=== PATIENT | female | born 1990 | race Caucasian/White ===

== ENCOUNTER 2017-01-08 05:08 | Day surgery (SDC) | payer OTHER ==
[2016-12-25 10:58] VITALS: BMI 47.0
[~2017-01-08] VITALS: Ht 162.6 cm; Wt 124.5 kg
[~2017-01-08 05:08] MED LIST: ACET-1311 PO; BCPILLS PO
[2017-01-08 05:25] VITALS: BP 102/48; PULSE 82; TEMP 36.8; O2SAT 98; Ht 162.6 cm; Wt 124.5 kg
[2017-01-08] MEDS ORDERED: LACTATED RINGER'S 1000ML 1,000 ML IV SCH (06:00)
[2017-01-08] MEDS ORDERED: MIDAZOLAM HCL 1 MG/ML 2ML VIAL ONE (06:41)
[2017-01-08] MEDS ORDERED: FENTANYL CITRATE INJ 50 MCG/1 ML 2 ML VIAL ONE (06:41)
[2017-01-08] MEDS ORDERED: OXYMETAZOLINE HCL 0.05% NA SPR 15 ML BTL ONE (07:08)
[2017-01-08] MEDS ORDERED: GELATIN SPONGE 12-7MM ONE (07:08)
[2017-01-08] MEDS ORDERED: LIDOCAINE/EPINEPHRINE 1% 20 ML VIAL ONE (07:08)
[2017-01-08] MEDS ORDERED: OFLOXACIN 0.3% OP SOLN 5 ML BTL ONE (07:09)
[2017-01-08] MEDS ORDERED: CIPRO 0.3%/DEXAMETHASONE 0.1% OTIC SUSP 7.5ML ONE (07:09)
[2017-01-08] MEDS ORDERED: EpINEphrine INJ 1MG/ML AMP 1 MG/ML AMP ONE (07:09)
--- NOTE | 2017-01-08 07:26 | History and Physical ---
History & Physical Date Jan 08, 2017. Chief Complaint adenoidal hypertrophy, acute serous otitis media of the left ear, and perforation of the right tympanic membrane. History of Present Illness The patient is a 26 year old female with complaints of adenoidal hypertrophy, acute serous otitis media of the left ear, and perforation of the right tympanic membrane. She has been performing saline irrigations, using a nasal steroid spray, and taking an antihistamine and guaifenesin as directed. She has had some improvement in her hearing but still feels as if she has muffled hearing. She denied drainage from her ear. Past Medical/Surgical History Medical Problems: (1) Intrauterine (2) Vaginal delivery appendectomy laparoscopy and cholecystectomy Additional History Hepatic Disease: No Endocrine Disorder: No Kidney Disease: No Hypertension: No Heart Disease: No Bleeding Tendencies: No Infectious Diseases: No Allergies Coded Allergies: NO KNOWN DRUG ALLERGIES (Unverified Allergy, Unknown, NONE, 01/08/17) [place] (Unverified Allergy, Unknown, RASH, 01/08/17) Home Medications Scheduled Acetaminophen (Tylenol), 650 MG PO PRN Control Pills ( Control Pills), 1 TAB PO QAM Physical Examination Skin: warm/dry Respiratory/Chest: normal breath sounds, no respiratory distress Cardiovascular: regular rate, rhythm, no murmur Diagnosis adenoidal hypertrophy, acute serous otitis media of the left ear, and perforation of the right tympanic membrane ASA Classification: ASA Class I Plan of Treatment surgical adenoidectomy and bilateral myringotomy and pressure equalization tube placement at [facility] on 01/08/[address] Tony Brito.
[2017-01-08] MEDS ORDERED: PROPOFOL IV EMULSION 10 MG/ML 20 ML VIAL IV ONE (07:56)
[2017-01-08] MEDS ORDERED: ONDANSETRON INJ 2 MG/ML 2 ML VIAL ONE (07:56)
[2017-01-08] MEDS ORDERED: SUCCINYLCHOLINE CHLORIDE 20 MG/ML 10 ML VIAL IV ONE (07:56)
[2017-01-08] MEDS ORDERED: LIDOCAINE HCL 2% 2 ML VIAL (20MG/ML) ONE (07:56)
[2017-01-08] MEDS ORDERED: DEXAMETHASONE SOD INJ 4 MG/ML VIAL ONE (07:56)
--- NOTE | 2017-01-08 08:05 | Discharge Instructions ---
Discharge Instructions Date of Service Jan 08, 2017. Admission Reason for Admission: Bilateral Acute Serous Otitis Media, Adenoidal Hyp Discharge Discharge Diagnosis / Problem: adenoidal hypertrophy, bilateral acute serous otitis media Discharge Goals Goal(s): Therapeutic intervention Activity Recommendations Activity Limitations: as noted below Lifting Limitations: no more than 5 pounds Exercise/Sports Limitations: as tolerated (no strenuous activity for 3 weeks) Shower/Bathe: no limitations Driving or Machine Use: Do not drive while taking narcotics. . Current Hospital Diet Patient's current hospital diet: Discharge Diet Recommended Diet: Regular Diet (soft foods and advance as tolerated. ) Procedures Procedures Performed: adenoidectomy with bilateral myringotomy with pressure equalization tube placement. Pending Studies Studies pending at discharge: no Medical Emergencies . Who to Call and When: Medical Emergencies: If at any time you feel your situation is an emergency, please call 911 immediately. . Non-Emergent Contact Non-Emergency issues call your: Primary Care Provider Call Non-Emergent contact if: your pain is not controlled, you have any medication questions Call the office immediately during regular office hours or go to the ER immediately if you notice any bleeding. . . "Provider Documentation" section prepared by Prabha Horn. VTE Core Measure Inpt VTE Proph given/why not?: SCD's
[2017-01-08] MEDS ORDERED: LARYING-O-JET KIT (LTA) EXT ONE ×2 (08:08)
[2017-01-08] MEDS ORDERED: ONDANSETRON INJ 2 MG/ML 2 ML VIAL IV PRN ×2 (08:15→08:45)
[2017-01-08] MEDS ORDERED: ACETAMINOPHEN/CODEINE 120/12MG 5ML UDP PO PRN (08:15)
--- NOTE | 2017-01-08 08:33 | [facility] Post Operative Brief Note ---
Immediate Operative Summary Operative Date Jan 08, 2017. Pre-Operative Diagnosis Adenoidal hypertrophy, acute serous otitis media of left ear Post-Operative Diagnosis Adenoidal hypertrophy, acute serous otitis media of left ear Procedure(s) Performed Adenoidectomy; Left Myringotomy with tube placement Surgeon Dr. Tony Brito Bar Assistant Surgeon(s) None Estimated Blood Loss 15 ml Findings 1) Right central tympanic membrane perforation with normal middle ear mucosa. 2) Left thickened tympanic membrane with serous fluid in the middle ear space and thickened middle ear mucosa. 3) Minimally enlarged adenoid tissue. Specimens A: Adenoid Complication(s) None Disposition Recovery Room / PACU
[2017-01-08] MEDS ORDERED: HYDROmorphone INJ 2 MG/ML SYR/VIAL ONE (08:42)
[2017-01-08] MEDS ORDERED: ATROPINE SULFATE 0.1 MG/ML 5ML SYR IV PRN (08:45)
[2017-01-08] MEDS ORDERED: EpHEDrine SULFATE INJ 50 MG/ML AMP IV PRN (08:45)
[2017-01-08] MEDS ORDERED: HYDROmorphone INJ 2 MG/ML SYR/VIAL IV PRN (08:45)
[2017-01-08] MEDS ORDERED: PHENYLEPHRINE 100MCG/ML 5ML SYR IV PRN (08:45)
[2017-01-08] MEDS ORDERED: HYDROmorphone INJ 1 MG/ML SYR ONE (09:02)
--- NOTE | 2017-01-08 09:12 | OPERATIVE REPORT ---
DATE OF OPERATION: 01/08/2017 PREOPERATIVE DIAGNOSIS: 1. Chronic serous otitis media bilaterally. 2. Adenoidal hypertrophy. POSTOPERATIVE DIAGNOSIS: 1. Perforation right tympanic membrane. 2. Chronic serous otitis media, left ear. 3. Adenoidal hypertrophy. PROCEDURE: 1. Adenoidectomy. 2. Left myringotomy with tube placement. SURGEON: Tony Brito M.D. ANESTHESIA: General via endotracheal tube. ESTIMATED BLOOD LOSS: 15 mL. INDICATIONS FOR THE PROCEDURE: This is a 26-year-old woman who has had 2 prior adenoidectomies. Nasopharyngoscopy had been done in my office and showed some adenoidal regrowth. In addition, she once again developed serous otitis media. For this reason, she was taken to the operating room for myringotomy with tube placement along with revision adenoidectomy. SUMMARY OF FINDINGS: 1. The right tympanic membrane had a perforation where previous tube had been. The middle ear mucosa was within normal limits. No surgery was done on the right ear. 2. Left tympanic membrane was thickened with serous fluid in the middle ear space. 3. Adenoids were minimally overgrown and only minimal adenoid tissue was removed. SPECIMENS SENT: Adenoidal tissue. Sponge and needle count was correct at the end the case. COMPLICATIONS: None. DESCRIPTION OF PROCEDURE: The patient had an uneventful endotracheal intubation and the operating microscope was introduced along with a metal speculum for each ear. Gaines curette was used to remove wax from both external auditory canals. When visualizing the right TM it was clear that there was a tympanic membrane perforation with normal middle ear mucosa in the right ear. Therefore, no surgery was done on the right ear. The left ear radial incision was made in the anterior inferior quadrant. A fluoroplastic collar button style tube was introduced after removing fluid. The ofloxacin drops were pumped into the middle ear space. A piece of cotton was placed in the external auditory canal meatus. The table was turned 90 degrees away from the anesthesiologist and head was lowered in the Amanda position. The Ruchi-Alex mouth gag was held in good place using towels. Afrin was placed in the nostrils and the nasopharynx was palpated with my index finger. Excessive adenoidal tissue was removed with a #4 adenoid curette. There was copious irrigation of the nasopharynx to flush out adenoidal tissue. Some tissue was sent for specimen. The resting was sucked into the [place]. The nasopharynx was packed with 2 tonsil sponges soaked in 0.05% oxymetazoline. These were left in place for about 5 minutes. I relaxed the Ruchi-Alex mouth gag while waiting the 5 minutes and then I reopened it. Sponges were removed and there was once again copious irrigation of the nasopharynx. Using a Gloria retractor I elevated the palate and performed cautery in the midline only. There was no further bleeding. The Ruchi-Alex mouth gag was removed as the head was returned to the neutral position. The patient was allowed to wake upon her own and transported to recovery following an uneventful extubation. I attest to the content of the Intraoperative Record and any orders documented therein. Any exceptions are noted below. KUSUM
[2017-01-08] MEDS ORDERED: CEFAZOLIN SOD 1 GM VIAL ONE (09:21)
[2017-01-08] MEDS ORDERED: DiphenhydrAMINE HCL 50 MG/ML VIAL ONE (09:26)
[2017-01-08 09:51] VITALS: BP 134/71; PULSE 87; TEMP 37; O2SAT 95
[2017-01-08 10:10] VITALS: BP 129/63; PULSE 81; O2SAT 96
[2017-01-08 10:40] VITALS: BP 132/71; PULSE 80; TEMP 37; O2SAT 97
--- NOTE | 2017-01-08 11:17 | Anesthesiology Progress Note ---
Anesthesia Post Op Note Date & Time Jan 08, 2017 at 11:16 Vital Signs Pain Intensity: 6.0 Vital Signs Past 12 Hours Date Time Temp Pulse Resp B/P Pulse Ox O2 Delivery O2 Flow Rate FiO2 01/08/17 10:10 81 16 129/63 96 Room Air 01/08/17 09:51 37 87 16 134/71 95 Nasal Cannula 2 01/08/17 09:05 37.0 75 16 116/74 93 Room Air 01/08/17 09:03 37.0 74 14 116/74 94 Room Air 01/08/17 08:55 78 14 125/78 94 01/08/17 08:45 79 13 121/92 97 01/08/17 08:35 84 18 92/73 100 Mask 10 01/08/17 08:27 36.2 82 16 120/54 100 Mask 10 01/08/17 05:25 36.8 82 18 102/48 98 Room Air Notes Mental Status: alert / awake / arousable, participated in evaluation Pt Amnestic to Procedure: Yes Nausea / Vomiting: adequately controlled Pain: adequately controlled Airway Patency, RR, SpO2: stable & adequate BP & HR: stable & adequate Hydration State: stable & adequate Anesthetic Complications: no major complications apparent
== END 2017-01-08 11:20 | disposition home or self-care (01) ==
LOC: C.ACU 05:08
PROVIDERS: ATTEND Otolaryngology
DX: H65.23 Chronic serous otitis media, bilateral (principal); J35.2 Hypertrophy of adenoids; H72.91 Unspecified perforation of tympanic membrane, right ear; Z91.018 Allergy to other foods; Z90.89 Acquired absence of other organs; Z90.49 Acquired absence of other specified parts of digestive tract; Z98.890 Other specified postprocedural states; Z79.3 Long term (current) use of hormonal contraceptives; E66.01 Morbid (severe) obesity due to excess calories; Z68.42 Body mass index [BMI] 45.0-49.9, adult

== ENCOUNTER 2024-03-26 08:14 | Inpatient (IN) ==
[2024-03-26] MEDS: MoRPHine SULFATE 4 MG/ML 1 ML CARP\\VIAL IV STA (08:41)
[2024-03-26] MEDS: ONDANSETRON INJ 2 MG/ML 2 ML VIAL IV STA ×2 (08:41→11:10)
[2024-03-26] MEDS: SODIUM CHLORIDE 0.9% 1,000 ML IV STA (08:42)
[2024-03-26 08:50] LABS: Basophils # (auto) 0.07 K/uL (0.00-0.20); Basophils % (auto) 0.8 %; Eosinophils # (auto) 0.19 K/uL (0.00-0.50); Eosinophils % (auto) 2.1 %; Hematocrit (blood only) 36.7 % (37.0-47.0); Hemoglobin 12.7 g/dl (12.0-16.0); Immature Granulocytes # (auto) 0.02 K/uL (0.01-0.20); Immature Granulocytes % (auto) 0.2 %; Lymphocytes % (auto) 19.2 %; Mean Corpuscular Hemoglobin 31.3 pg (25.0-34.0); Mean Corpuscular Hgb Conc 34.6 g/dL (32.0-36.0); Mean Corpuscular Volume 90.4 fL (80.0-100.0); Mean Platelet Volume 10.6 fL (9.4-12.4); Monocytes # (auto) 0.46 K/uL (0.11-0.59); Monocytes % (auto) 5.2 %; Neutrophils # (auto) 6.43 K/uL (1.40-6.50); Neutrophils % (auto) 72.5 %; Platelet Count 317 K/uL (130-400); RDW Coefficient of Variation 12.2 % (11.5-14.5); Red Blood Count 4.06 M/uL (4.20-5.40); White Blood Count 8.87 K/ul (4.8-10.8)
--- NOTE | 2024-03-26 08:56 | Emergency Department Note ---
ED Provider Note History of Present Illness Chief Complaint: Abdominal Pain Stated Complaint: ABD PAINS Time Seen by Provider: 03/26/24 08:20 34-year-old female presents to the emergency department with complaints of abdominal pain that started at approximately 630 this morning. Patient reports that she woke with significant pain in her lower abdomen. Patient describes pain as a sharp pain through her lower abdomen denies radiation of pain. Patient notes significant nausea but denies any episodes of emesis. Patient notes that she is more pale in color than her baseline. Notes waking with clammy skin and feeling hot and cold spells. Patient has a history of gastric bypass in 2018 and notes recently starting Zoloft and has had diarrhea since starting that medication. Home Medications Medication Instructions Recorded Confirmed Type ascorbic acid (vitamin C) 500 mg 500 mg PO BID 07/30/22 03/26/24 History tablet biotin 5,000 mcg sublingual tablet 5,000 mcg sublingual BID 07/30/22 03/26/24 History calcium citrate 200 mg 2 tab PO TID 07/30/22 03/26/24 History calcium-vitamin D3 6.25 mcg (250 unit) tablet (Citracal-D3 Petites) cholecalciferol (vitamin D3) 50 50 mcg PO DAILY 07/30/22 03/26/24 History mcg (2,000 unit) capsule (Vitamin D3) cyanocobalamin (vitamin B-12) 1,000 mcg IM Q3M 07/30/22 03/26/24 History 1,000 mcg/mL injection solution norethindrone acetate 5 mg tablet 5 mg PO QAM 07/30/22 03/26/24 History pediatric multivitamin no.7-folic 1 tab PO BID 07/30/22 03/26/24 History acid 100 mcg chewable tablet (Flintstones Tab Chew) semaglutide (weight loss) 1.7 1.7 mg subcut WK 03/26/24 03/26/24 History mg/0.75 mL subcutaneous pen injector (Wegovy) sertraline 50 mg tablet 50 mg PO DAILY 03/26/24 03/26/24 History Allergies Allergy/AdvReac Type Severity Reaction Status Date / Time No Known Drug Allergies Allergy Unknown NONE Unverified 07/30/22 00:43 NSAIDS (Non-Steroidal Allergy Unknown I had Unverified 03/26/24 11:36 Anti-Inflamma gastric bypass surgery strawberry Allergy Unknown RASH Unverified 03/26/24 11:15 Past Med/Surg History Problem List Conductive hearing loss of both ears Prior poor obstetrical history, antepartum (Acute 09/08/13) Medical History No significant past medical history Surgical History History of ear surgery History of gastric bypass History of right oophorectomy Family History Other No significant family history Social History Smoking Status: Never smoker Preferred Language: Belarusian Beliefs That Will Affect Care: Spiritual Feels Safe at Home: Yes Physical Exam Vital Signs Vital Signs - 24 hr 03/26/24 08:20 03/26/24 08:30 03/26/24 08:46 Temperature 36.9 C Temperature Source Temporal Artery Scan Pulse Rate 78 77 Pulse Rate [Apical] 68 Pulse Rate from SpO2 Sensor Respiratory Rate 16 18 Respiratory Effort / Characteristics Non-Labored Respiratory Depth Normal Blood Pressure 136/92 Blood Pressure [Right Arm] 137/74 Blood Pressure Mean 106 Blood Pressure Mean [Right Arm] 95 Pulse Oximetry 100 100 Oxygen Delivery Method Room Air Sepsis Recent Fever Within 48 Hours No Sepsis New/Unexplained Change in Mental Status No Sepsis Action Taken by Nursing No Action Required 03/26/24 08:46 03/26/24 11:03 03/26/24 11:45 Temperature Temperature Source Pulse Rate 64 62 65 Pulse Rate [Apical] Pulse Rate from SpO2 Sensor 62 Respiratory Rate 18 18 19 Respiratory Effort / Characteristics Respiratory Depth Blood Pressure Blood Pressure [Right Arm] Blood Pressure Mean Blood Pressure Mean [Right Arm] Pulse Oximetry 100 100 Oxygen Delivery Method Room Air Sepsis Recent Fever Within 48 Hours Sepsis New/Unexplained Change in Mental Status Sepsis Action Taken by Nursing 03/26/24 12:27 03/26/24 12:30 03/26/24 12:30 Temperature Temperature Source Pulse Rate 60 59 L 59 L Pulse Rate [Apical] Pulse Rate from SpO2 Sensor Respiratory Rate 12 21 Respiratory Effort / Characteristics Respiratory Depth Blood Pressure Blood Pressure [Right Arm] Blood Pressure Mean Blood Pressure Mean [Right Arm] Pulse Oximetry 98 Oxygen Delivery Method Sepsis Recent Fever Within 48 Hours Sepsis New/Unexplained Change in Mental Status Sepsis Action Taken by Nursing 03/26/24 13:15 03/26/24 13:33 03/26/24 14:00 Temperature Temperature Source Pulse Rate 74 64 59 L Pulse Rate [Apical] Pulse Rate from SpO2 Sensor 72 63 59 L Respiratory Rate 16 14 16 Respiratory Effort / Characteristics Respiratory Depth Blood Pressure 145/84 H 143/86 H Blood Pressure [Right Arm] Blood Pressure Mean 104 105 Blood Pressure Mean [Right Arm] Pulse Oximetry 97 94 95 Oxygen Delivery Method Sepsis Recent Fever Within 48 Hours Sepsis New/Unexplained Change in Mental Status Sepsis Action Taken by Nursing VITAL SIGNS - Vital signs and nursing notes were reviewed. GENERAL -34-year-old female appearing in some acute distress. Communicates well with provider and answers questions appropriately. HEAD - NC/AT. EYES - PERRL with EOMI bilaterally. EARS - No deformities of external structures noted on gross examination bilaterally. No pain elicited with palpation of the tragus bilaterally. External auditory canals without discharge or otorrhea. NOSE - Midline and without cyanosis. No epistaxis or purulent drainage noted. MOUTH/OROPHARYNX - Without perioral cyanosis. NECK - Neck with FROM. Supple to palpation. No nuchal rigidity. LUNGS - Chest wall symmetric without accessory muscle use, intercostals retractions, or central cyanosis. Normal vesicular breath sounds CTA B/L. No wheezes, rales, or rhonchi appreciated. CARDIAC - No murmur, rubs, or gallops appreciated. ABDOMEN - Abdominal contour flat without pulsations or visible masses. Negative [place]'s or Phan Donovan's Signs. BS are normoactive all four quadrants. Moderate tenderness to palpation appreciated across lower abdomen. Mild guarding. No rebound Tenderness. No palpable masses, hepatosplenomegaly, or ascites noted. EXTREMITIES - No clubbing or peripheral cyanosis. No pretibial edema present. NEUROLOGIC - Cranial nerves II through XII grossly intact. Sensory intact to light touch throughout. PSYCH - A&Ox3 and cooperates fully with examiner. Pt is very pleasant and interacts well with staff. Course Course 34-year-old female presents to the emergency department with complaints of lower abdominal pain that began at approximately 630 this morning. Patient was evaluated by myself and found to have moderate abdominal tenderness, worse with palpation, and significant nausea without emesis. Vital signs were reviewed and cardiac monitoring was initiated by nursing staff. Lab work was ordered as well as a saline lock, fluids, pain medication, Zofran and an abdominal CT. Serum was ordered as well as a urinalysis. Patient denies being able to void at this time but is aware of the urine sample is to be collected. Patient denies any other needs at this time. Patient reported to nursing staff that she was still having significant pain, initial dose of morphine only reduced the pain a little. An additional dose of morphine was ordered for patient to assist with pain control. Patient is cleared to go to CT scan and will be transported after being medicated. Patient returned from CT, still complaining of significant pain. CT scan was interpreted by the radiologist to have intussusception at the anastomosis site from gastric bypass. Gastric bypass was completed in 2018. General surgery was paged and further pain medication was ordered. 10:40am-General surgery was consulted. Kiana Renteria PA-C was consulted regarding patient, given report of HPI, current vitals, CT results, lab results and patient current status. Kiana also consulted with Dr. Marquez and both agreed that transfer to [facility] was recommended. 10:45am-Patient was reevaluated by myself, reports some pain relief however pain is still 7 out of 10. Patient appears to be uncomfortable. Patient was made aware that general surgery was consulted here and recommended transfer to [facility]. Patient verbalizes understanding and is agreeable. 11:15- Paperwork was completed for transfer. Patient was ordered toradol and zofran for continued pain and nausea. 11:50-patient was ordered a lactic acid which resulted at 2.4. Patient was ordered normal saline for hydration and Mefoxin for antibiotic coverage. 12:45-patient reported to nursing staff that significant pain had returned. Patient was ordered another dose of Dilaudid to assist with pain control. Still awaiting a bed at [facility]. 13:15-checked with personal secretary regarding any update on patient's transfer to [facility]. No updates at this time, no bed has been received 15:00-patient is resting in bed, no update at this time on a bed at [facility]. 16:35-still awaiting placement in [place]. Patient reports pain has increased and is requesting more pain medication at this time. Another dose of Dilaudid was ordered 17:15-[facility] [place] states that patient's room should be available shortly. Patient was ordered at her next dose of Mefoxin to be administered at 6 PM. Patient also ordered as needed medications for pain and nausea. 17:30-patient care was signed out to MANI Siegel, please refer to her documentation for further treatment. Administered Medications Hydromorphone HCl (Hydromorphone Inj 0.5 Mg/0.5 Ml Syr) 0.5 mg IV Q2H PRN PRN Reason: Pain Stop: 04/09/24 17:08 Last Admin: 03/26/24 17:25 Dose: 0.5 mg Documented By: DESTINI Discontinued Medications Hydromorphone HCl (Hydromorphone Inj 0.5 Mg/0.5 Ml Syr) 0.5 mg IV NOW STA Stop: 03/26/24 09:45 Last Admin: 03/26/24 09:51 Dose: 0.5 mg Documented By: TAD Hydromorphone HCl (Hydromorphone Inj 1 Mg/Ml Syringe) 1 mg IV NOW STA Stop: 03/26/24 10:12 Last Admin: 03/26/24 10:38 Dose: 1 mg Documented By: TAD Hydromorphone HCl (Hydromorphone Inj 1 Mg/Ml Syringe) 1 mg IV NOW STA Stop: 03/26/24 12:57 Last Admin: 03/26/24 13:01 Dose: 1 mg Documented By: VANNA Hydromorphone HCl (Hydromorphone Inj 1 Mg/Ml Syringe) 1 mg IV NOW STA Stop: 03/26/24 15:49 Last Admin: 03/26/24 15:56 Dose: 1 mg Documented By: DESTINI Sodium Chloride (Nss) 1,000 mls @ 999 mls/hr IV .Q1H1M STA Stop: 03/26/24 09:35 Last Infusion: 03/26/24 09:48 Dose: Infused Documented By: Admin: 03/26/24 08:42 Dose: 999 mls/hr Documented By: TAD Sodium Chloride (Nss) 1,000 mls @ 250 mls/hr IV .Q4H JHONATAN Stop: 03/26/24 16:14 Last Admin: 03/26/24 13:01 Dose: 250 mls/hr Documented By: VANNA Cefoxitin Sodium 1,000 mg/ (Dextrose) 50 mls @ 100 mls/hr IV NOW STA; Protocol Stop: 03/26/24 12:36 Last Infusion: 03/26/24 14:59 Dose: Infused Documented By: Admin: 03/26/24 13:22 Dose: 100 mls/hr Documented By: VANNA Ioversol (Optiray 320 100ml) 94 ml IV ONCE ONE Stop: 03/26/24 09:27 Last Admin: 03/26/24 09:26 Dose: 94 ml Documented By: MIGUEL ANGEL Ketorolac Tromethamine (Ketorolac Tromethamine 15 Mg/Ml Vial) 15 mg IV NOW STA Stop: 03/26/24 11:01 Last Admin: 03/26/24 11:10 Dose: 15 mg Documented By: VANNA Metoclopramide HCl (Metoclopramide Hcl Inj 5 Mg/Ml 2 Ml Vial) 10 mg IV NOW STA Stop: 03/26/24 16:17 Last Admin: 03/26/24 16:28 Dose: 10 mg Documented By: DESTINI Morphine Sulfate (Morphine Sulfate 4 Mg/Ml 1 Ml Carp\Vial) 4 mg IV NOW STA Stop: 03/26/24 08:36 Last Admin: 03/26/24 08:41 Dose: 4 mg Documented By: TAD Morphine Sulfate (Morphine Sulfate 10 Mg/Ml Carp/Vial) 4 mg IV NOW STA Stop: 03/26/24 09:12 Last Admin: 03/26/24 09:16 Dose: 4 mg Documented By: JOHN Ondansetron HCl (Ondansetron Inj 2 Mg/Ml 2 Ml Vial) 4 mg IV NOW STA Stop: 03/26/24 08:36 Last Admin: 03/26/24 08:41 Dose: 4 mg Documented By: TAD Ondansetron HCl (Ondansetron Inj 2 Mg/Ml 2 Ml Vial) 4 mg IV NOW STA Stop: 03/26/24 11:09 Last Admin: 03/26/24 11:10 Dose: 4 mg Documented By: VANNA Medical Decision Making Differential Diagnosis Gastroenteritis, small bowel obstruction, ectopic , hemorrhagic cyst, urinary tract infection and more. Medical Records Attestation: I reviewed the patient's medical records. Home Medications was personally reviewed by me Laboratory Data 03/26/24 08:34 03/26/24 08:34 Lab Results 03/26/24 03/26/24 03/26/24 Range/Units 08:34 08:36 10:21 WBC 8.87 (4.8-10.8) K/ul RBC 4.06 L (4.20-5.40) M/uL Hgb 12.7 (12.0-16.0) g/dl Hct 36.7 L (37.0-47.0) % MCV 90.4 (80.0-100.0) fL MCH 31.3 (25.0-34.0) pg MCHC 34.6 (32.0-36.0) g/dL RDW Std Deviation 40.0 (36.4-46.3) fL RDW Coeff of Claire 12.2 (11.5-14.5) % Plt Count 317 (130-400) K/uL MPV 10.6 (9.4-12.4) fL Immature Gran % (Auto) 0.2 % Neut % (Auto) 72.5 % Lymph % (Auto) 19.2 % Frontier % (Auto) 5.2 % Eos % (Auto) 2.1 % Baso % (Auto) 0.8 % Neut # (Auto) 6.43 (1.40-6.50) K/uL Lymph # (Auto) 1.70 (1.20-3.40) K/uL Frontier # (Auto) 0.46 (0.11-0.59) K/uL Eos # (Auto) 0.19 (0.00-0.50) K/uL Baso # (Auto) 0.07 (0.00-0.20) K/uL Immature Gran # (Auto) 0.02 (0.01-0.20) K/uL PT 10.7 (9.0-12.0) Seconds INR 1.0 (0.9-1.1) Sodium 139 (136-145) mmol/L Potassium 3.8 (3.5-5.1) mmol/L Chloride 106 (98-107) mmol/L Carbon Dioxide 23 (21-32) mmol/L Anion Gap 10 (3-11) BUN 13 (6-23) mg/dl Creatinine 0.63 (0.6-1.2) mg/dl Est Cr Clr Drug Dosing 115.8 ml/min Est GFR ( Amer) 134.7 ml/min Est GFR (Non-Af Amer) 116.2 ml/min BUN/Creatinine Ratio 20.6 H (10-20) Glucose 112 H (70-99(Fasting)) mg/dl Lactate 2.4 H* (0.4-2.0) mmol/L Calcium 9.6 (8.6-10.3) mg/dl Total Bilirubin 0.5 (0.2-1.0) mg/dl AST 14 (13-39) U/L ALT 9 (7-52) U/L Alkaline Phosphatase 54 (34-104) U/L Total Protein 7.7 (6.0-8.3) gm/dl Albumin 4.4 (3.4-5.0) gm/dl Globulin 3.3 (2.5-4.0) gm/dl Albumin/Globulin Ratio 1.3 (0.9-2) Lipase 8 L (11-82) U/L HCG, Qual Negative (Negative) Blood Type O Positive Antibody Screen NEGATIVE 03/26/24 Range/Units 12:21 WBC (4.8-10.8) K/ul RBC (4.20-5.40) M/uL Hgb (12.0-16.0) g/dl Hct (37.0-47.0) % MCV (80.0-100.0) fL MCH (25.0-34.0) pg MCHC (32.0-36.0) g/dL RDW Std Deviation (36.4-46.3) fL RDW Coeff of Claire (11.5-14.5) % Plt Count (130-400) K/uL MPV (9.4-12.4) fL Immature Gran % (Auto) % Neut % (Auto) % Lymph % (Auto) % Frontier % (Auto) % Eos % (Auto) % Baso % (Auto) % Neut # (Auto) (1.40-6.50) K/uL Lymph # (Auto) (1.20-3.40) K/uL Frontier # (Auto) (0.11-0.59) K/uL Eos # (Auto) (0.00-0.50) K/uL Baso # (Auto) (0.00-0.20) K/uL Immature Gran # (Auto) (0.01-0.20) K/uL PT (9.0-12.0) Seconds INR (0.9-1.1) Sodium (136-145) mmol/L Potassium (3.5-5.1) mmol/L Chloride (98-107) mmol/L Carbon Dioxide (21-32) mmol/L Anion Gap (3-11) BUN (6-23) mg/dl Creatinine (0.6-1.2) mg/dl Est Cr Clr Drug Dosing ml/min Est GFR ( Amer) ml/min Est GFR (Non-Af Amer) ml/min BUN/Creatinine Ratio (10-20) Glucose (70-99(Fasting)) mg/dl Lactate 1.6 (0.4-2.0) mmol/L Calcium (8.6-10.3) mg/dl Total Bilirubin (0.2-1.0) mg/dl AST (13-39) U/L ALT (7-52) U/L Alkaline Phosphatase (34-104) U/L Total Protein (6.0-8.3) gm/dl Albumin (3.4-5.0) gm/dl Globulin (2.5-4.0) gm/dl Albumin/Globulin Ratio (0.9-2) Lipase (11-82) U/L HCG, Qual (Negative) Blood Type Antibody Screen Imaging Data Radiologist's Impression: Abdomen/Pelvis CT 03/26/24 08:36 CT abd pelvis IV con only CLINICAL HISTORY: Abdominal pain, nausea TECHNIQUE: Helical axial images of the abdomen and pelvis were obtained and displayed. Automated dose lowering techniques and/or adjustment according to patient size were utilized for this exam. This exam was performed with intravenous contrast. CT DOSE: 760.56 mGy.cm COMPARISON: None available at the time of this dictation. FINDINGS: Lower chest: No acute abnormality. Liver: Heterogeneous hypodensity of the region of the falciform ligament which may represent focal fatty change versus meningioma or other mass. Gallbladder and biliary tree: Patient is status post cholecystectomy. No intra- or extrahepatic biliary ductal dilation. Pancreas: Unremarkable, no focal lesions. Spleen: Unremarkable. Adrenals: Unremarkable. Kidneys and ureters: Tiny left hypodensities too small to characterize. Bladder: Unremarkable. Reproductive organs: Unremarkable. Bowel: Postsurgical changes of Bhakti-en-Y gastric bypass are seen. There is small bowel intussusception at the site of the distal anastomosis. There is resulting dilation of a few upstream loops of small bowel. The distal bowel is underdistended. Lymph nodes Retroperitoneal: Unremarkable. Pelvic: Unremarkable. Mesenteric: Unremarkable. Peritoneum: Normal. Vessels: Unremarkable. Abdominal wall: Unremarkable. Bones: Unremarkable. IMPRESSION: Dilated loops of small bowel secondary to intussusception at the anastomosis site of the Bhakti-en-Y gastric bypass. Additional findings as above. ACT 112: Negative or not required by law. Electronically signed by: Reid Badillo M.D. 03/26/2024 9:57 AM MDM Narrative 34-year-old female presents to the emergency department with complaints of lower abdominal pain that began at approximately 630 this morning. Patient is pale in color, clammy, and reports significant pain and nausea. Patient is actively retching upon physical exam, denies any vomiting. Patient was ordered lab work and an abdominal CT. A type and screen was ordered in the event that blood products would be indicated. General surgery was consulted regarding findings of intussiception on CT, who recommended that patient be transferred to [facility] where gastric bypass surgery was completed. I spoke with general surgery at [facility] who accepted patient on transfer. Reports that they should have a bed for patient today. Continued pain medication has been ordered to help with significant pain. Discharge Plan Visit Data Chief Complaint: Abdominal Pain Stated Complaint: ABD PAINS ED Provider: Jose R Collins ED Midlevel Provider: Skye Davis Forms Stand Alone Forms: My [facility] Prescriptions Prescriptions: No Action norethindrone acetate 5 mg tablet 5 mg PO QAM cyanocobalamin (vitamin B-12) 1,000 mcg/mL solution 1,000 mcg IM Q3M biotin 5,000 mcg Tablet, Sublingual 5,000 mcg SUBLINGUAL BID ascorbic acid (vitamin C) 500 mg Tablet 500 mg PO BID Flintstones Tab Chew 100 mcg Tablet,Chewable 1 tab PO BID cholecalciferol (vitamin D3) [Vitamin D3] 50 mcg (2,000 unit) Capsule 50 mcg PO DAILY calcium citrate-vitamin D3 [Citracal-D3 Petites] 200 mg-6.25 mcg (250 unit) Tablet 2 tab PO TID sertraline 50 mg tablet 50 mg PO DAILY Wegovy 1.7 mg/0.75 mL pen injector 1.7 mg subcut WK Rx Instructions: Fridays Referrals Referrals: Otilio Suárez PA-C [Primary Care Provider] -
[2024-03-26 09:05] LABS: Pregnancy Test, Serum Negative (Negative)
[2024-03-26 09:11] LABS: Albumin Globulin Ratio 1.3 (0.9-2); Albumin Level 4.4 gm/dl (3.4-5.0); BUN Creatinine Ratio 20.6 (10-20); Bilirubin,Total 0.5 mg/dl (0.2-1.0); Calcium 9.6 mg/dl (8.6-10.3); Creatinine Clr Calc Pharmacy 115.8 ml/min; Est GFR (African American) 134.7 ml/min; Est GFR (Non-African American) 116.2 ml/min; Globulin 3.3 gm/dl (2.5-4.0); Potassium 3.8 mmol/L (3.5-5.1); Total Protein 7.7 gm/dl (6.0-8.3)
[2024-03-26 09:14] LABS: Prothrombin Time 10.7 Seconds (9.0-12.0)
[2024-03-26] MEDS: MoRPHine SULFATE 10 MG/ML CARP/VIAL IV STA (09:16)
[2024-03-26] MEDS: OPTIRAY 320 100ml IV ONE (09:26)
[2024-03-26] MEDS: HYDROmorphone INJ 0.5 MG/0.5 ML SYR IV STA (09:51)
--- NOTE | 2024-03-26 09:58 | CT Scan Report ---
CT abd pelvis IV con only CLINICAL HISTORY: Abdominal pain, nausea TECHNIQUE: Helical axial images of the abdomen and pelvis were obtained and displayed. Automated dose lowering techniques and/or adjustment according to patient size were utilized for this exam. This e xam was performed with intravenous contrast. CT DOSE: 760.56 mGy.cm COMPARISON: None available at the time of this dictation. FINDINGS: Lower chest: No acute abnormality. Liver: Heterogeneous hypodensity of the region of the falciform ligament which may represent focal fa tty change versus meningioma or other mass. Gallbladder and biliary tree: Patient is status post cholecystectomy. No intra- or extrahepatic bilia ry ductal dilation. Pancreas: Unremarkable, no focal lesions. Spleen: Unremarkable. Adrenals: Unremarkable. Kidneys and ureters: Tiny left hypodensities too small to characterize. Bladder: Unremarkable. Reproductive organs: Unremarkable. Bowel: Postsurgical changes of Bhakti-en-Y gastric bypass are seen. There is small bowel intussusceptio n at the site of the distal anastomosis. There is resulting dilation of a few upstream loops of small bowel. The distal bowel is underdistended. Lymph nodes Retroperitoneal: Unremarkable. Pelvic: Unremarkable. Mesenteric: Unremarkable. Peritoneum: Normal. Vessels: Unremarkable. Abdominal wall: Unremarkable. Bones: Unremarkable. IMPRESSION: Dilated loops of small bowel secondary to intussusception at the anastomosis site of the Bhakti-en-Y ga stric bypass. Additional findings as above. ACT 112: Negative or not required by law. Electronically signed by: Reid Badillo M.D. 03/26/2024 9:57 AM
[2024-03-26] MEDS: HYDROmorphone INJ 1 MG/ML SYRINGE IV STA ×3 (10:38→15:56)
[2024-03-26] MEDS: KETOROLAC TROMETHAMINE 15 MG/ML VIAL IV STA (11:10)
[2024-03-26] MEDS: SODIUM CHLORIDE 0.9% 1,000 ML IV SCH (13:01)
[2024-03-26] MEDS: cefOXitin 1,000 MG in DEXTROSE 5 % MINI-B 50 ML IV STA (13:22)
[2024-03-26] MEDS: METOCLOPRAMIDE HCL INJ 5 MG/ML 2 ML VIAL IV STA (16:28)
[2024-03-26] MEDS: HYDROmorphone INJ 0.5 MG/0.5 ML SYR IV PRN (17:25)
[2024-03-26] MEDS: cefOXitin 2,000 MG in DEXTROSE 5 % MINI-B 50 ML IV SCH (18:48)
--- NOTE | 2024-03-26 22:40 | Emergency Department Note ---
ED Visit Note I received sign-out from MANI Gonsalez, at change of shift. The patient is awaiting transfer to [facility] for intussusception of her small bowel at the anastomosis site of her gastric bypass. She has already been accepted for the transfer, but is awaiting a bed assignment. Patient is on as needed IV Dilaudid for pain management and is receiving cefoxitin IV every 6 hours. At 10:35 PM, the patient's nurse called me stating the patient is having increasing abdominal pain, rating 10/10 and is no longer getting relief after r eceiving IV Dilaudid. She requested something additional for pain. She has already received numerous doses of IV Dilaudid and morphine as well as a dose of IV Toradol. 1000 mg IV acetaminophen was ordered as well as a repeat lactate. I examined the patient. Vital signs are stable. She is afebrile. She has tenderness in the epigastric region, but abdomen is soft and no rebound tenderness or guarding. She is not vomiting and her nausea has been under control. She does note that her pain is improving at after starting the IV acetaminophen. Repeat lactate is normal at 0.8 as well. I spoke on phone with Dr. Kovacs, general surgery, regarding the patient's worsening pain and she states that she is not able to address the patient's surgical complaints and agreed with the plan for transfer. Unfortunately, the patient has not been able to obtain a bed or transport to [facility] at this time, and will most likely not have available transport until at least tomorrow morning. I spoke on the phone with Dr. Romero, [facility] hospitalist, who agrees to evaluate the patient for admission pending her transfer to [facility], hopefully tomorrow morning. The patient was also discussed with Dr. Valdez, my ED attending, who agrees with my assessment, plan, and disposition. The chart was completed utilizing [employer] Speech voice recognition software. Grammatical errors, random word insertions, pronoun errors, and incomplete sentences are an occasional consequence of this system due to software limitations, ambient noise, and hardware issues. Any formal questions or concerns about the content, text, or information contained within the body of this dictation should be directly addressed to the nurse practitioner for clarification.
[2024-03-26] MEDS: ACETAMINOPHEN 1,000 MG/100 ML VIAL IV STA (22:42)
--- NOTE | 2024-03-26 23:37 | History & Physical Report ---
Date of Service March 26, 2024 Assessment & Plan (1) SBO (small bowel obstruction): Plan: Intussusception on CT History of gastric bypass No sepsis for now Hyperglycemia rule out DM [facility] transfer once transport available. (Patient already accepted by Dr. Resendez of [facility] General Surgery. Transfer paperwork already completed by ED provider.) IVF, bowel rest, limit narcotics NGT insertion if with worsening abdominal pain/dry heaving/emesis. Check hemoglobin A1c DVT prophylaxis per Lovenox subcu Full code Case discussed with Dr. Resendez. Okay with NGT insertion. No need for antibiotics for now. Recommends repeat CT abdomen pelvis with IV contrast. Text document was generated using [employer] voice recognition software. It may contain grammatical or spelling errors. Kindly contact undersigned for clarification of any documentation item in qu estion. History of Present Illness Chief Complaint: Abdominal pain Primary Care Provider: Otilio Suárez PA-C History obtained from patient and records. Medical history significant for gastric bypass, endometriosis, migraine. Patient woke up this morning with sharp achy central abdominal pain going up. Dry heaving. Bowel movements not as much the last few days. No headache, no chest pain, no SOB. No fever, no chills. Patient consulted ER. CT abdomen pelvis showed dilated loops of small bowel secondary to intussusception at the anastomosis site of the Bhakti-en-Y gastric bypass. Cefoxitin administered at the ER. General surgery recommended [facility] transfer. Patient accepted for transfer by [facility] surgery. Patient currently waiting transport. Medical History as above Surgical History : Gastric bypass, appendectomy, section, hysteroscopy with fallopian implants, tympanoplasty, cholecystectomy, pelvic tumor removal, right oophorectomy, [place] gland excision Family History : DM, heart disease Personal/Social history : Non-smoker, no EtOH intake, hotel laundry employee Allergies Allergy/AdvReac Type Severity Reaction Status Date / Time No Known Drug Allergies Allergy Unknown NONE Unverified 07/30/22 00:43 NSAIDS (Non-Steroidal Allergy Unknown I had Unverified 03/26/24 11:36 Anti-Inflamma gastric bypass surgery strawberry Allergy Unknown RASH Unverified 03/26/24 11:15 Home Medications Medication Instructions Recorded Confirmed Type ascorbic acid (vitamin C) 500 mg 500 mg PO BID 07/30/22 03/26/24 History tablet biotin 5,000 mcg sublingual tablet 5,000 mcg sublingual BID 07/30/22 03/26/24 History calcium citrate 200 mg 2 tab PO TID 07/30/22 03/26/24 History calcium-vitamin D3 6.25 mcg (250 unit) tablet (Citracal-D3 Petites) cholecalciferol (vitamin D3) 50 50 mcg PO DAILY 07/30/22 03/26/24 History mcg (2,000 unit) capsule (Vitamin D3) cyanocobalamin (vitamin B-12) 1,000 mcg IM Q3M 07/30/22 03/26/24 History 1,000 mcg/mL injection solution norethindrone acetate 5 mg tablet 5 mg PO QAM 07/30/22 03/26/24 History pediatric multivitamin no.7-folic 1 tab PO BID 07/30/22 03/26/24 History acid 100 mcg chewable tablet (Flintstones Tab Chew) semaglutide (weight loss) 1.7 1.7 mg subcut WK 03/26/24 03/26/24 History mg/0.75 mL subcutaneous pen injector (Wegovy) sertraline 50 mg tablet 50 mg PO DAILY 03/26/24 03/26/24 History Past Med/Surg History Problem List (Updated 03/27/24 @ 04:32 by Tanmay Romero MD) SBO (small bowel obstruction) Conductive hearing loss of both ears Prior poor obstetrical history, antepartum (Acute 09/08/13) Medical History No significant past medical history Surgical History History of ear surgery History of gastric bypass History of right oophorectomy Family History Other No significant family history Social History Smoking Status: Never smoker Second Hand Exposure: No; Do You Dip or Chew Tobacco: No; Hx Alcohol Use: No Hx Substance Use: Yes Last Used Substance: Days (ago) Last Used Substance Other:: 1 week ago, only does occasionally Preferred Language: Welsh Communication Ability: Effective Service Engine Repairer Required: No Beliefs That Will Affect Care: None Feels Safe at Home: Yes Safety Concerns: Feels Safe At This Time Assistive Devices: None Review of Systems Review of Systems: As per HPI, all other systems reviewed and negative Physical Exam Physical Exam: GENERAL: Anxious, slightly uncomfortable, no respiratory distress SKIN: Normal color, warm HEENT: [place] palpebral conjunctivae, no ptosis, dry buccal mucosa NECK : Supple, no tenderness CHEST : CTA, no tenderness HEART : RRR, no obvious murmurs ABDOMEN: Some distention, minimal central abdominal tenderness EXTREMITIES : No LE swelling/tenderness, no other conspicuous deformities noted NEUROLOGIC : Coherent, no facial asymmetry, no other gross focality Results & Data Results & Data Vital Signs (Past 12 Hours) Vital Signs Pulse Pulse Resp BP BP Pulse Ox O2 Del Method 03/26/24 21:16 77 03/26/24 21:06 65 7 L 96 03/26/24 20:30 74 15 98 03/26/24 20:30 136/80 03/26/24 19:30 132/82 03/26/24 19:30 69 17 100 Room Air 03/26/24 19:06 66 14 98 Room Air 03/26/24 18:51 80 20 100 03/26/24 18:27 66 12 98 03/26/24 17:43 65 22 117/65 97 Room Air 03/26/24 17:42 72 19 98 03/26/24 16:45 75 19 98 03/26/24 16:09 68 97 03/26/24 15:42 68 100 03/26/24 15:03 65 99 03/26/24 14:00 59 L 16 143/86 H 95 03/26/24 13:33 64 14 94 03/26/24 13:15 74 16 145/84 H 97 03/26/24 12:30 59 L 21 03/26/24 12:30 59 L 03/26/24 12:27 60 12 98 03/26/24 11:45 65 19 Laboratory Results Laboratory Results WBC 8.87 K/ul (4.8-10.8) 03/26/24 08:34 RBC 4.06 M/uL (4.20-5.40) L 03/26/24 08:34 Hgb 12.7 g/dl (12.0-16.0) 03/26/24 08:34 Hct 36.7 % (37.0-47.0) L 03/26/24 08:34 MCV 90.4 fL (80.0-100.0) 03/26/24 08:34 MCH 31.3 pg (25.0-34.0) 03/26/24 08:34 MCHC 34.6 g/dL (32.0-36.0) 03/26/24 08:34 RDW Std Deviation 40.0 fL (36.4-46.3) 03/26/24 08:34 RDW Coeff of Claire 12.2 % (11.5-14.5) 03/26/24 08:34 Plt Count 317 K/uL (130-400) 03/26/24 08:34 MPV 10.6 fL (9.4-12.4) 03/26/24 08:34 Immature Gran % (Auto) 0.2 % 03/26/24 08:34 Neut % (Auto) 72.5 % 03/26/24 08:34 Lymph % (Auto) 19.2 % 03/26/24 08:34 [place] % (Auto) 5.2 % 03/26/24 08:34 Eos % (Auto) 2.1 % 03/26/24 08:34 Baso % (Auto) 0.8 % 03/26/24 08:34 Neut # (Auto) 6.43 K/uL (1.40-6.50) 03/26/24 08:34 Lymph # (Auto) 1.70 K/uL (1.20-3.40) 03/26/24 08:34 [place] # (Auto) 0.46 K/uL (0.11-0.59) 03/26/24 08:34 Eos # (Auto) 0.19 K/uL (0.00-0.50) 03/26/24 08:34 Baso # (Auto) 0.07 K/uL (0.00-0.20) 03/26/24 08:34 Immature Gran # (Auto) 0.02 K/uL (0.01-0.20) 03/26/24 08:34 PT 10.7 Seconds (9.0-12.0) 03/26/24 08:34 INR 1.0 (0.9-1.1) 03/26/24 08:34 Sodium 139 mmol/L (136-145) 03/26/24 08:34 Potassium 3.8 mmol/L (3.5-5.1) 03/26/24 08:34 Chloride 106 mmol/L (98-107) 03/26/24 08:34 Carbon Dioxide 23 mmol/L (21-32) 03/26/24 08:34 Anion Gap 10 (3-11) 03/26/24 08:34 BUN 13 mg/dl (6-23) 03/26/24 08:34 Creatinine 0.63 mg/dl (0.6-1.2) 03/26/24 08:34 Est Cr Clr Drug Dosing 115.8 ml/min 03/26/24 08:34 Est GFR ( Amer) 134.7 ml/min 03/26/24 08:34 Est GFR (Non-Af Amer) 116.2 ml/min 03/26/24 08:34 BUN/Creatinine Ratio 20.6 (10-20) H 03/26/24 08:34 Glucose 112 mg/dl (70-99(Fasting)) H 03/26/24 08:34 Lactate 0.8 mmol/L (0.4-2.0) 03/26/24 23:08 Calcium 9.6 mg/dl (8.6-10.3) 03/26/24 08:34 Total Bilirubin 0.5 mg/dl (0.2-1.0) 03/26/24 08:34 AST 14 U/L (13-39) 03/26/24 08:34 ALT 9 U/L (7-52) 03/26/24 08:34 Alkaline Phosphatase 54 U/L (34-104) 03/26/24 08:34 Total Protein 7.7 gm/dl (6.0-8.3) 03/26/24 08:34 Albumin 4.4 gm/dl (3.4-5.0) 03/26/24 08:34 Globulin 3.3 gm/dl (2.5-4.0) 03/26/24 08:34 Albumin/Globulin Ratio 1.3 (0.9-2) 03/26/24 08:34 Lipase 8 U/L (11-82) L 03/26/24 08:34 HCG, Qual Negative (Negative) 03/26/24 08:34 Blood Type O Positive 03/26/24 08:36 Antibody Screen NEGATIVE 03/26/24 08:36 Impressions Abdomen/Pelvis CT 03/26/24 08:36 CT abd pelvis IV con only CLINICAL HISTORY: Abdominal pain, nausea TECHNIQUE: Helical axial images of the abdomen and pelvis were obtained and displayed. Automated dose lowering techniques and/or adjustment according to patient size were utilized for this exam. This exam was performed with intravenous contrast. CT DOSE: 760.56 mGy.cm COMPARISON: None available at the time of this dictation. FINDINGS: Lower chest: No acute abnormality. Liver: Heterogeneous hypodensity of the region of the falciform ligament which may represent focal fatty change versus meningioma or other mass. Gallbladder and biliary tree: Patient is status post cholecystectomy. No intra- or extrahepatic biliary ductal dilation. Pancreas: Unremarkable, no focal lesions. Spleen: Unremarkable. Adrenals: Unremarkable. Kidneys and ureters: Tiny left hypodensities too small to characterize. Bladder: Unremarkable. Reproductive organs: Unremarkable. Bowel: Postsurgical changes of Bhakti-en-Y gastric bypass are seen. There is small bowel intussusception at the site of the distal anastomosis. There is resulting dilation of a few upstream loops of small bowel. The distal bowel is underdistended. Lymph nodes Retroperitoneal: Unremarkable. Pelvic: Unremarkable. Mesenteric: Unremarkable. Peritoneum: Normal. Vessels: Unremarkable. Abdominal wall: Unremarkable. Bones: Unremarkable. IMPRESSION: Dilated loops of small bowel secondary to intussusception at the anastomosis site of the Bhakti-en-Y gastric bypass. Additional findings as above. ACT 112: Negative or not required by law. Electronically signed by: Reid Badillo M.D. 03/26/2024 9:57 AM
[2024-03-26 23:56] LABS: Magnesium 1.7 mg/dl (1.7-2.4)
[2024-03-26] MEDS ORDERED: LORazepam 0.25 MG in SYRINGE 0.125 ML IV PRN (23:57)
[2024-03-27] MEDS ORDERED: PROMETHAZINE HCL 6.25 MG in SODIUM CHLORIDE 0.9% 50 ML IV PRN (01:14)
[2024-03-27] MEDS ORDERED: LIDOCAINE 2% JELLY 5 ML TUBE EXT ONE (01:45)
[2024-03-27] MEDS: ONDANSETRON INJ 2 MG/ML 2 ML VIAL IV PRN (01:50)
[2024-03-27] MEDS: KETOROLAC TROMETHAMINE 15 MG/ML VIAL IV PRN (01:52)
[2024-03-27 02:30] LABS: Appearance Urine Clear (Clear); Bacteria Urine Automated None Seen (None Seen); Bilirubin Urine Negative (Negative); Blood Urine 1+ (Negative); Cast Urine Automated 0-2 /lpf (0-2); Color Urine Yellow; Epithelial Cell Urine Auto 0-2 /hpf (0-2); Glucose Urine UA Negative (Negative); Ketones Urine 4+ (Negative); Leukocyte Esterase Urine Negative (Negative); Nitrite Urine Negative (Negative); Protein Urine Negative (Negative); Specific Gravity Urine 1.024 (1.000-1.030); Urobilinogen Urine Negative (Negative); WBC Urine Automated 0-5 /hpf (0-5)
[2024-03-27] MEDS ORDERED: Nursing to Pharmacy Communication SCH (03:15)
[2024-03-27] MEDS: NSS + 20MEQ KCL 20 MEQ/1,000 ML BAG IV ONE (03:21)
[2024-03-27] MEDS: ACETAMINOPHEN 1,000 MG/100 ML VIAL IV PRN (06:33)
[2024-03-27 06:57] LABS: Estimated Average Glucose 103 mg/dl; Hemoglobin A1C 5.2 % (4.5-5.6)
[2024-03-27] MEDS: ENOXAPARIN INJ 40 MG/0.4 ML SYR SQ SCH (07:35)
[2024-03-27] MEDS: SERTRALINE HCL 50 MG TABLET PO SCH (07:35)
[2024-03-27 07:53] LABS: Basophils # (auto) 0.03 K/uL (0.00-0.20); Basophils % (auto) 0.2 %; Eosinophils # (auto) 0.02 K/uL (0.00-0.50); Eosinophils % (auto) 0.1 %; Hemoglobin 11.5 g/dl (12.0-16.0); Immature Granulocytes # (auto) 0.11 K/uL (0.01-0.20); Immature Granulocytes % (auto) 0.7 %; Lymphocytes # (auto) 1.29 K/uL (1.20-3.40); Lymphocytes % (auto) 7.8 %; Mean Corpuscular Hemoglobin 30.7 pg (25.0-34.0); Mean Corpuscular Hgb Conc 33.8 g/dL (32.0-36.0); Mean Corpuscular Volume 90.7 fL (80.0-100.0); Monocytes # (auto) 1.51 K/uL (0.11-0.59); Monocytes % (auto) 9.1 %; Neutrophils # (auto) 13.57 K/uL (1.40-6.50); Neutrophils % (auto) 82.1 %; Platelet Count 292 K/uL (130-400); RDW Coefficient of Variation 12.1 % (11.5-14.5); RDW Standard Deviation 39.9 fL (36.4-46.3); Red Blood Count 3.75 M/uL (4.20-5.40); White Blood Count 16.53 K/ul (4.8-10.8)
[2024-03-27 08:17] LABS: Calcium 8.6 mg/dl (8.6-10.3); Creatinine Clr Calc Pharmacy 144.8 ml/min; Est GFR (African American) 145.3 ml/min; Est GFR (Non-African American) 125.4 ml/min; Potassium 3.7 mmol/L (3.5-5.1)
[2024-03-27] MEDS: OPTIRAY 320 100ml IV ONE (09:13)
[2024-03-27] MEDS ORDERED: NSS + 20MEQ KCL 20 MEQ/1,000 ML BAG IV SCH (10:00)
[2024-03-27] MEDS: ACETAMINOPHEN 1,000 MG/100 ML VIAL IV SCH (10:16)
--- NOTE | 2024-03-27 10:26 | Discharge Summary ---
Discharge Summary Date of Service March 27, 2024 Principal Dx & Hospital Course #1 = Principal Diagnosis (1) SBO (small bowel obstruction): Plan SBO (small bowel obstruction) Intussusception on CT History of gastric bypass No sepsis for now Pt in lots of pain [facility] transfer once transport available. (Patient already accepted by Dr. Resendez of [facility] General Surgery. Transfer paperwork already completed by ED provider.) IVF, bowel rest, limit narcotics NGT insertion if with worsening abdominal pain/dry heaving/emesis. DVT prophylaxis per Lovenox subcu Full code Case discussed with Dr. Resendez NGT insertion if needed) No need for antibiotics for now. Recommended repeat CT abdomen pelvis with IV contrast with new read of the following: Read of "1. Bhakti-en-Y gastric bypass. There is progressive worsening of the high-grade small bowel obstruction at the jejunojejunal anastomosis with an associated large intussusception. There is progressive interloop edema/small volume of ascites with associated jejunal wall thickening. Surgical evaluation is needed. This was made as a call report at time of dictation." The above was communicated to Dr Resendez at [facility] at about 10:45AM who recommended to continue with ground transfer at 11:30AM. Case also discussed with General Surgery team at [facility] [address] who recommended to continue with transfer to [facility] as scheduled. Notes For Next Care Provider Pt transferred urgently to [facility] in [place] Medication Changes From Visit See below Admission HPI Per Admitting Provider History obtained from patient and records. Medical history significant for gastric bypass, endometriosis, migraine. Patient woke up this morning with sharp achy central abdominal pain going up. Dry heaving. Bowel movements not as much the last few days. No headache, no chest pain, no SOB. No fever, no chills. Patient consulted ER. CT abdomen pelvis showed dilated loops of small bowel secondary to intussusception at the anastomosis site of the Bhakti-en-Y gastric bypass. Cefoxitin administered at the ER. General surgery recommended [facility] transfer. Patient accepted for transfer by [facility] surgery. Patient currently waiting transport. Medical History as above Surgical History : Gastric bypass, appendectomy, section, hysteroscopy with fallopian implants, tympanoplasty, cholecystectomy, pelvic tumor removal, right oophorectomy, [place] gland excision Family History : DM, heart disease Personal/Social history : Non-smoker, no EtOH intake, hotel laundry employee Admission Exam Per Admitting Provider GENERAL: Anxious, slightly uncomfortable, no respiratory distress SKIN: Normal color, warm HEENT: [place] palpebral conjunctivae, no ptosis, dry buccal mucosa NECK : Supple, no tenderness CHEST : CTA, no tenderness HEART : RRR, no obvious murmurs ABDOMEN: Some distention, minimal central abdominal tenderness EXTREMITIES : No LE swelling/tenderness, no other conspicuous deformities noted NEUROLOGIC : Coherent, no facial asymmetry, no other gross focality Discharge Exam General: Alert, oriented. No acute distress Skin: No noted rashes or bruises Psych: Appropriate mood and affect HEENT: NC/AT CV: RRR Resp: Breath sounds clear bilaterally, no increased effort of breathing. Abdomen: BS+. Soft, diffusely tender, nondistended Extremities: No edema in lower extremities bilaterally. Updated Medication List Medication Instructions Recorded Confirmed Type ascorbic acid (vitamin C) 500 mg 500 mg PO BID 07/30/22 03/26/24 History tablet biotin 5,000 mcg sublingual tablet 5,000 mcg sublingual BID 07/30/22 03/26/24 History calcium citrate 200 mg 2 tab PO TID 07/30/22 03/26/24 History calcium-vitamin D3 6.25 mcg (250 unit) tablet (Citracal-D3 Petites) cholecalciferol (vitamin D3) 50 50 mcg PO DAILY 07/30/22 03/26/24 History mcg (2,000 unit) capsule (Vitamin D3) cyanocobalamin (vitamin B-12) 1,000 mcg IM Q3M 07/30/22 03/26/24 History 1,000 mcg/mL injection solution norethindrone acetate 5 mg tablet 5 mg PO QAM 07/30/22 03/26/24 History pediatric multivitamin no.7-folic 1 tab PO BID 07/30/22 03/26/24 History acid 100 mcg chewable tablet (Flintstones Tab Chew) semaglutide (weight loss) 1.7 1.7 mg subcut WK 03/26/24 03/26/24 History mg/0.75 mL subcutaneous pen injector (Wegovy) sertraline 50 mg tablet 50 mg PO DAILY 03/26/24 03/26/24 History Additional Medication Comments Current Inpatient Medications Enoxaparin Sodium (Enoxaparin Inj 40 Mg/0.4 Ml Syr) 40 mg SQ QAM JHONATAN Stop: 04/26/24 08:59 Last Admin: 03/27/24 07:35 Dose: 40 mg Lorazepam 0.25 mg/ Syringe 0.25 mls @ 2 mls/min IV Q8H PRN PRN Reason: Anxiety/Agitation Stop: 04/25/24 23:56 Promethazine HCl 6.25 mg/ (Sodium Chloride) 50.25 mls @ 201 mls/hr IV Q6H PRN PRN Reason: Nausea And Vomiting Stop: 04/26/24 01:13 Potassium Chloride/Sodium Chloride (Normal Saline W/20 Meq Kcl) 20 meq in 1,000 mls @ 100 mls/hr IV .Q10H [facility]; Protocol Stop: 04/26/24 09:59 Acetaminophen (Ofirmev) 1,000 mg in 100 mls @ 400 mls/hr IV Q8H [facility] Stop: 03/30/24 09:59 Last Admin: 03/27/24 10:16 Dose: 400 mls/hr Ondansetron HCl (Ondansetron Inj 2 Mg/Ml 2 Ml Vial) 4 mg IV Q6H PRN PRN Reason: Nausea And Vomiting Stop: 04/25/24 17:08 Last Admin: 03/27/24 01:50 Dose: 4 mg Oxycodone HCl (Oxycodone Hcl Ir 5 Mg Tab (Immediate Release)) 5 mg PO Q6H PRN PRN Reason: Pain Stop: 04/10/24 09:46 Sertraline HCl (Sertraline Hcl 50 Mg Tablet) 50 mg PO DAILY [facility] Stop: 04/26/24 08:59 Last Admin: 03/27/24 07:35 Dose: 50 mg Hospital Stay Data Diagnostic Imagining Performed 03/26/24 08:36 CT abd pelvis IV con only Stat 03/27/24 09:00 CT Abd and Pelvis [CT abd pelvis IV con only] Urgent Abdomen/Pelvis CT 03/26/24 08:36 CT abd pelvis IV con only CLINICAL HISTORY: Abdominal pain, nausea TECHNIQUE: Helical axial images of the abdomen and pelvis were obtained and displayed. Automated dose lowering techniques and/or adjustment according to patient size were utilized for this exam. This exam was performed with intravenous contrast. CT DOSE: 760.56 mGy.cm COMPARISON: None available at the time of this dictation. FINDINGS: Lower chest: No acute abnormality. Liver: Heterogeneous hypodensity of the region of the falciform ligament which may represent focal fatty change versus meningioma or other mass. Gallbladder and biliary tree: Patient is status post cholecystectomy. No intra- or extrahepatic biliary ductal dilation. Pancreas: Unremarkable, no focal lesions. Spleen: Unremarkable. Adrenals: Unremarkable. Kidneys and ureters: Tiny left hypodensities too small to characterize. Bladder: Unremarkable. Reproductive organs: Unremarkable. Bowel: Postsurgical changes of Bhakti-en-Y gastric bypass are seen. There is small bowel intussusception at the site of the distal anastomosis. There is resulting dilation of a few upstream loops of small bowel. The distal bowel is underdistended. Lymph nodes Retroperitoneal: Unremarkable. Pelvic: Unremarkable. Mesenteric: Unremarkable. Peritoneum: Normal. Vessels: Unremarkable. Abdominal wall: Unremarkable. Bones: Unremarkable. IMPRESSION: Dilated loops of small bowel secondary to intussusception at the anastomosis site of the Bhakti-en-Y gastric bypass. Additional findings as above. ACT 112: Negative or not required by law. Electronically signed by: Reid Badillo M.D. 03/26/2024 9:57 AM Abdomen/Pelvis CT 03/27/24 09:[address] WITH IV CONTRAST CT DOSE: 635.16 mGy.cm HISTORY: Acute generalized abdominal pain with possible obstruction ffup, sbo, as per [facility] surgeon rec TECHNIQUE: Multiaxial CT images of the abdomen and pelvis were performed following the IV administration of 94 cc of Optiray, A dose lowering technique was utilized adhering to the principles of ALARA. COMPARISON STUDY: 03/26/2024 FINDINGS: Partially imaged breast implants. The lung bases. No free air. Unremarkable spleen, pancreas and adrenal glands. Cholecystectomy with likely postsurgical mild biliary ductal dilation. Focal hepatic steatosis from left hepatic lobe surrounding the falciform ligament. There is patency of the hepatic and portal veins. No hydronephrosis. Symmetric enhancement of the kidneys. 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 Unremarkable urinary bladder. Anteflexed uterus with probable fundal leiomyoma. Probable dominant left ovarian follicle. Aorta and IVC are unremarkable. No lymphadenopathy identified. Postoperative changes of Bhakti-en-Y gastric bypass. Small bowel obstruction redemonstrated with transition point at the jejunojejunal anastomosis. There is an intussusception. Noted within this area with dilation measuring up to 7.7 cm, previously 7 cm. In addition 0.9 on image 166 series 3. Moderate associated twisting of the mesentery. There is progressively worsened interloop edema with bowel wall thickening at this area. There is a small fat filled umbilical hernia. Trace air noted along the left anterior abdominal wall. This may be postprocedural. No acute fracture. IMPRESSION: 1. Bhakti-en-Y gastric bypass. There is progressive worsening of the high-grade small bowel obstruction at the jejunojejunal anastomosis with an associated large intussusception. There is progressive interloop edema/small volume of ascites with associated jejunal wall thickening. Surgical evaluation is needed. This was made as a call report at time of dictation. 2. No pneumatosis or pneumoperitoneum. 3. Additional findings as above. ACT 112: Negative or not required by law. The above report was generated using voice recognition software. It may contain grammatical, syntax or spelling errors. Electronically signed by: Matthew Kessler M.D. 03/27/2024 10:26 AM Discharge Instructions Given to Patient (Per Discharging Provider) SBO (small bowel obstruction) Intussusception on CT History of gastric bypass No sepsis for now [facility] transfer once transport available. (Patient already accepted by Dr. Resendez of [facility] General Surgery. Transfer paperwork already completed by ED provider.) IVF, bowel rest, limit narcotics NGT insertion if with worsening abdominal pain/dry heaving/emesis. DVT prophylaxis per Lovenox subcu Full code Case discussed with Dr. Resendez NGT insertion if needed) No need for antibiotics for now. Recommended repeat CT abdomen pelvis with IV contrast Read of "1. Bhakti-en-Y gastric bypass. There is progressive worsening of the high-grade small bowel obstruction at the jejunojejunal anastomosis with an associated large intussusception. There is progressive interloop edema/small volume of ascites with associated jejunal wall thickening. Surgical evaluation is needed. This was made as a call report at time of dictation." The above was communicated to Dr Resendez at [facility] at about 10:45AM who recommended to continue with ground transfer at 11:30AM. Case also discussed with General Surgery team at [facility] [address] who recommended to continue with transfer to [facility] as scheduled. Total Time Total Time Spent Total Time Spent (In Minutes): 75
--- NOTE | 2024-03-27 10:28 | CT Scan Report ---
ABDOMEN AND PELVIS CT WITH IV CONTRAST CT DOSE: 635.16 mGy.cm HISTORY: Acute generalized abdominal pain with possible obstruction ffup, sbo, as [facility] re c TECHNIQUE: Multiaxial CT images of the abdomen and pelvis were performed following the IV administrat ion of 94 cc of Optiray, A dose lowering technique was utilized adhering to the principles of ALARA. COMPARISON STUDY: 03/26/2024 FINDINGS: Partially imaged breast implants. The lung bases. No free air. Unremarkable spleen, pancrea s and adrenal glands. Cholecystectomy with likely postsurgical mild biliary ductal dilation. Focal he patic steatosis from left hepatic lobe surrounding the falciform ligament. There is patency of the he patic and portal veins. No hydronephrosis. Symmetric enhancement of the kidneys. 7 mm angiomyolipoma of the superior pole rig ht kidney. Unremarkable urinary bladder. Anteflexed uterus with probable fundal leiomyoma. Probable d ominant left ovarian follicle. Aorta and IVC are unremarkable. No lymphadenopathy identified. Postoperative changes of Bhakti-en-Y gastric bypass. Small bowel obstruction redemonstrated with transi tion point at the jejunojejunal anastomosis. There is an intussusception. Noted within this area with dilation measuring up to 7.7 cm, previously 7 cm. In addition 0.9 on image 166 series 3. Moderate as sociated twisting of the mesentery. There is progressively worsened interloop edema with bowel wall t hickening at this area. There is a small fat filled umbilical hernia. Trace air noted along the left anterior abdominal wall. This may be postprocedural. No acute fracture. IMPRESSION: 1. Bhakti-en-Y gastric bypass. There is progressive worsening of the high-grade small bowel obstruction at the jejunojejunal anastomosis with an associated large intussusception. There is progressive inte rloop edema/small volume of ascites with associated jejunal wall thickening. Surgical evaluation is n eeded. This was made as a call report at time of dictation. 2. No pneumatosis or pneumoperitoneum. 3. Additional findings as above. ACT 112: Negative or not required by law. The above report was generated using voice recognition software. It may contain grammatical, syntax o r spelling errors. Electronically signed by: Matthew Kessler M.D. 03/27/2024 10:26 AM
[2024-03-27] MEDS: oxyCODONE HCL IR 5 MG TAB (IMMEDIATE RELEASE) PO PRN (12:15)
== END 2024-03-27 12:50 | disposition short-term general hospital (02) | DRG 390 ==
LOC: ED 08:14 → SUATTDRO 23:39 → 3N 03-27 01:30